=== PATIENT | male | born 1965 | race Caucasian/White ===

== ENCOUNTER → 2016-04-04 | Outpatient (CLI) | payer BC ==
[~2016-04-04] MED LIST: LASIX 40MG TABL40 MG PO; LEVOTHYROXINE100 MC1 PO; SODIUM BIC650 MG/TAB PO; TRANDATE 100MG100 MG PO
== END ==
LOC: LAB 14:59
DX: A04.5 Campylobacter enteritis (principal); N18.5 Chronic kidney disease, stage 5; E03.8 Other specified hypothyroidism

== ENCOUNTER → 2016-05-15 | Outpatient (CLI) | payer BC ==
[2016-01-03 16:20] VITALS: BP 146/83
== END ==
LOC: LAB 08:41
DX: N18.4 Chronic kidney disease, stage 4 (severe) (principal); Z01.818 Encounter for other preprocedural examination

== ENCOUNTER → 2016-06-05 | Outpatient (CLI) | payer BC | LOC: LAB 08:51 | DX: N18.5 Chronic kidney disease, stage 5 (principal) ==

== ENCOUNTER → 2016-07-12 | Outpatient (CLI) | payer BC ==
[2016-01-03 16:20] VITALS: BP 146/83
== END ==
LOC: LAB 08:40
DX: N18.5 Chronic kidney disease, stage 5 (principal)

== ENCOUNTER → 2016-08-09 | Outpatient (CLI) | payer BC ==
[2016-01-03 16:20] VITALS: BP 146/83
== END ==
LOC: LAB 09:02
DX: N18.9 Chronic kidney disease, unspecified (principal)

== ENCOUNTER → 2016-09-04 | Outpatient (CLI) | payer BC ==
[2016-01-03 16:20] VITALS: BP 146/83
== END ==
LOC: LAB 08:22
DX: N18.5 Chronic kidney disease, stage 5 (principal)

== ENCOUNTER → 2016-10-04 | Outpatient (CLI) | payer BC ==
[2016-01-03 16:20] VITALS: BP 146/83
== END ==
LOC: LAB 09:34
DX: N18.4 Chronic kidney disease, stage 4 (severe) (principal); Z01.818 Encounter for other preprocedural examination

== ENCOUNTER → 2016-11-06 | Outpatient (CLI) | payer BC ==
[2016-01-03 16:20] VITALS: BP 146/83
== END ==
LOC: LAB 08:25
DX: N18.9 Chronic kidney disease, unspecified (principal)

== ENCOUNTER → 2016-12-05 | Outpatient (CLI) | payer BC ==
[2016-01-03 16:20] VITALS: BP 146/83
== END ==
LOC: LAB 09:28
DX: N18.5 Chronic kidney disease, stage 5 (principal); D63.1 Anemia in chronic kidney disease; H60.391 Other infective otitis externa, right ear

== ENCOUNTER → 2017-01-02 | Outpatient (CLI) | payer BC ==
[2016-01-03 16:20] VITALS: BP 146/83
== END ==
LOC: LAB 08:12
DX: N18.9 Chronic kidney disease, unspecified (principal)

== ENCOUNTER → 2017-01-19 | Outpatient (CLI) | payer BC ==
[2016-01-03 16:20] VITALS: BP 146/83
== END ==
LOC: LAB 12:39
DX: T63.301A Toxic effect of unspecified spider venom, accidental (unintentional), initial encounter (principal)

== ENCOUNTER 2019-07-01 12:34 | Emergency (ER) | payer BC ==
[2019-07-01 13:30] LABS: HEMATOCRIT 43.6 % (42.0-52.0); MEAN CELL VOLUME 84 fl (78-100); MEAN CORPUSCULAR HEMOGLOBIN 25 pg (27-31); MEAN CORPUSCULAR HGB CONC 30 g/dL (33-37); MEAN PLATELET VOLUME 10.1 fl (7.4-10.4); MONO # 0.2 (0.20-0.80); NEU # 4.6 (1.40-6.50); PLATELET COUNT 238 K/mm3 (130-400); RED BLOOD COUNT 5.17 M/mm3 (4.20-5.60); RED CELL DISTRIBUTION WIDTH 16.3 % (11.5-14.5); WHITE BLOOD COUNT 5.8 K/mm3 (4.8-10.8)
[2019-07-01 13:39] LABS: ALBUMIN 3.9 g/dL (3.5-5.0); POTASSIUM 4.3 mmol/L (3.5-5.1)
[2019-07-01 13:40] LABS: CALCIUM 9.4 mg/dL (8.3-10.5)
[2019-07-01 13:42] LABS: TOTAL PROTEIN 6.3 g/dL (6.4-8.3)
[2019-07-01 13:43] LABS: TOTAL BILIRUBIN 0.7 mg/dL (0.2-1.2)
[2019-07-01 14:15] VITALS: BP 145/54
[2019-07-01] MEDS ORDERED: PROAIR HFA0.09 MG/AC IH (15:21)
[2019-07-01] MEDS ORDERED: NORVASC 10MG10 MG PO (15:23)
[2019-07-01] MEDS ORDERED: CARVEDILOL12.5 MG PO (15:27)
[2019-07-01] MEDS ORDERED: FUROSEMIDE40 MG PO (15:28)
[2019-07-01] MEDS ORDERED: BREO ELLIPTA1 POW IH (15:28)
[2019-07-01] MEDS ORDERED: NIZORAL CREAM15 GM TOP (15:30)
[2019-07-01] MEDS ORDERED: MYCOPHENOLIC A360 MG PO (15:31)
[2019-07-01] MEDS ORDERED: PREDNISONE 5MG5 MG PO (15:32)
[2019-07-01] MEDS ORDERED: SULFAMETHOXAZO1 EACH PO (15:33)
[2019-07-01] MEDS ORDERED: TACROLIMUS0.5 MG PO (15:34)
[2019-07-01] MEDS ORDERED: TACROLIMUS1 MG PO (15:34)
[2019-07-01] MEDS ORDERED: FLOMAX0.4 MG PO (15:35)
[2019-07-01] MEDS ORDERED: VALGANCICLOVIR450 MG PO (15:36)
== END 2019-07-01 14:32 | disposition short-term general hospital (02) ==
LOC: ED 12:34
PROVIDERS: Nurse Practitioner Family
DX: T21.00XA Burn of unspecified degree of trunk, unspecified site, initial encounter (principal); T21.25XA Burn of second degree of buttock, initial encounter; T22.20XA Burn of second degree of shoulder and upper limb, except wrist and hand, unspecified site, initial encounter; T24.202A Burn of second degree of unspecified site of left lower limb, except ankle and foot, initial encounter; T31.0 Burns involving less than 10% of body surface; I48.91 Unspecified atrial fibrillation; I10 Essential (primary) hypertension; Z94.0 Kidney transplant status; V86.55XA Driver of 3- or 4- wheeled all-terrain vehicle (ATV) injured in nontraffic accident, initial encounter; X01.8XXA Other exposure to uncontrolled fire, not in building or structure, initial encounter; Y92.007 Garden or yard of unspecified non-institutional (private) residence as the place of occurrence of the external cause
CPT/HCPCS: J2270; J2405; J3010; J7120; L0172